=== PATIENT | female | born 1985 | race Caucasian/White ===

== ENCOUNTER 2016-11-08 00:03 | Emergency (ER) | payer BC, OTHER ==
[2016-11-08 00:21] VITALS: BP 119/77; PULSE 60; TEMP 98.4; BMI 27.1
[2016-11-08] MEDS ORDERED: KETOROLAC TROMETHAMINE 60 MG/2 ML VIAL IM ONE (01:03)
[2016-11-08] MEDS ORDERED: OXYCODONE/APAP 5/325MG COMBO TABLET PO ONE (01:03)
--- NOTE | 2016-11-08 01:03 | PDOC ---
History of Present Illness - General History Source: Patient, Old Records Exam Limitations: No Limitations - History of Present Illness Initial Comments: 11/08/16 01:08 The patient is a 31 year old female, with a significant past medical history of chronic back pain and anxiety, who presents to the emergency department with a panic attack that occurred today and back pain. She reports that she was on a plane today which caused her to have a panic attack. She notes that the panic attack caused her back pain to flare up. She describes her back pain as localized in the lower back, ranging from moderate to severe, without radiation or modifying factors. She states that she takes Valium 5 mg 3 times a day. The patient denies chest pain, shortness of breath, headache and dizziness. LMP: 10/19/2016 Allergies: None Past surgical history: Breast augmentation Social history: Alcohol and tobacco use. No drug use reported <Rodolfo Carmen - Last Filed: 11/08/16 01:11> <Isaura Payne - Last Filed: 11/08/16 01:51> - General Chief Complaint: Psychiatric Stated Complaint: ANXIETY/LOWER BACK PAIN Time Seen by Provider: 11/08/16 00:20 Past History <Rodolfo Carmen - Last Filed: 11/08/16 01:11> - Past Medical History Anemia: No Asthma: No Cancer: No Cardiac Disorders: No CVA: No COPD: No CHF: No DVT: No Dementia: No Diabetes: No Dialysis: No Psychiatric Problems: Yes (anxiety) - Psycho/Social/Smoking Cessation Hx Suicidal Ideation: No Smoking Status: No Smoking History: Never smoked Number of Cigarettes Smoked Daily: 0 <Isaura Payne - Last Filed: 11/08/16 01:51> - Past Medical History Allergies/Adverse Reactions: Allergies Allergy/AdvReac Type Severity Reaction Status Date / Time No Known Allergies Allergy Verified 11/08/16 00:19 Home Medications: Ambulatory Orders No Home Medications 0 dose .ROUTE UTDICT 11/24/13 Trauma Specific PMHX - Complaint Specific PMHX Arthritis: No <Isaura Payne - Last Filed: 11/08/16 01:51> Review of Systems - Review of Systems Able to Perform ROS?: Yes Comments:: 11/08/16 01:09 GENERAL/CONSTITUTIONAL: +Anxiety. No fever or chills. No weakness. HEAD, EYES, EARS, NOSE AND THROAT: No change in vision. No ear pain or discharge. No sore throat. CARDIOVASCULAR: No chest pain or shortness of breath RESPIRATORY: No cough, wheezing, or hemoptysis. GASTROINTESTINAL: No nausea, vomiting, diarrhea or constipation. GENITOURINARY: No dysuria, frequency, or change in urination. MUSCULOSKELETAL: +Back pain. No joint or muscle swelling or pain. No neck pain. SKIN: No rash NEUROLOGIC: No headache, vertigo, loss of consciousness, or change in strength/ sensation. ENDOCRINE: No increased thirst. No abnormal weight change HEMATOLOGIC/LYMPHATIC: No anemia, easy bleeding, or history of blood clots. ALLERGIC/IMMUNOLOGIC: No hives or skin allergy. <Rodolfo Carmen - Last Filed: 11/08/16 01:11> *Physical Exam - Vital Signs Last Vital Signs Temp Pulse Resp BP Pulse Ox 98.4 F 60 18 119/77 100 11/08/16 00:19 11/08/16 00:19 11/08/16 00:19 11/08/16 00:19 11/08/16 00:19 - Physical Exam Comments: 11/08/16 01:09 GENERAL: Awake, alert, and fully oriented, in no acute distress HEAD: No signs of trauma, normocephalic, atraumatic EYES: PERRLA, EOMI, sclera anicteric, conjunctiva clear ENT: Auricles normal inspection, hearing grossly normal, nares patent, oropharynx clear without exudates. Moist mucosa NECK: Normal ROM, supple, no lymphadenopathy, JVD, or masses LUNGS: No distress, speaks full sentences, clear to auscultation bilaterally HEART: Regular rate and rhythm, normal S1 and S2, no murmurs, rubs or gallops, peripheral pulses normal and equal bilaterally. ABDOMEN: Soft, nontender, normoactive bowel sounds. No guarding, no rebound. No masses EXTREMITIES: Normal inspection, Normal range of motion, no edema. No clubbing or cyanosis. NEUROLOGICAL: Cranial nerves II through XII grossly intact. Normal speech, normal gait, no focal sensorimotor deficits SKIN: Warm, Dry, normal turgor, no rashes or lesions noted. <Rodolfo Carmen - Last Filed: 11/08/16 01:11> - Vital Signs Last Vital Signs Temp Pulse Resp BP Pulse Ox 98.4 F 60 18 119/77 100 11/08/16 00:19 11/08/16 00:19 11/08/16 00:19 11/08/16 00:19 11/08/16 00:19 <Isaura Payne - Last Filed: 11/08/16 01:51> Medical Decision Making - Medical Decision Making 11/08/16 01:26 31 yo female with h/o chronic back pain and anxiety states her flight from [place] has exacerbated her low back pain and anxiety -she denies any recent trauma,fever,chills,hematuria,flank pain ,nausea or vomiting <Isaura Payne - Last Filed: 11/08/16 01:51> *DC/Admit/Observation/Transfer - Attestations Scribe Attestion: 11/08/16 01:09 Documentation prepared by Rodolfo Carmen, acting as medical management specialist for Isaura Payne MD <Rodolfo Carmen - Last Filed: 11/08/16 01:11> <Isaura Payne - Last Filed: 11/08/16 01:51> Diagnosis at time of Disposition: Anxiety Chronic low back pain Qualifiers: Back pain laterality: bilateral Sciatica presence: without sciatica Qualified Code(s): M54.5 - Low back pain - Discharge Dispostion Disposition: HOME Condition at time of disposition: Stable - Referrals Referrals: Yonatan Ashford [Primary Care Provider] - - Patient Instructions Printed Discharge Instructions: DI for Low Back Pain, DI for Anxiety -- Adult Additional Instructions: Please followup with your regular physician this week
[2016-11-08] MEDS ORDERED: OXYCODONE/APAP 5/325MG COMBO TABLET ONE (01:13)
[2016-11-08] MEDS ORDERED: KETOROLAC TROMETHAMINE 60 MG/2 ML VIAL ONE (01:13)
== END 2016-11-08 02:02 | disposition home or self-care (01) ==
LOC: JER 00:03
PROC: 3E0233Z Introduction of Anti-inflammatory into Muscle, Percutaneous Approach (ICD-10-PCS; principal; 2016-11-08)
DX: F41.9 Anxiety disorder, unspecified (principal)
CPT/HCPCS: 99281-25

== ENCOUNTER 2023-12-04 22:39 | Emergency (ER) | payer BC ==
[2023-12-04] MEDS ORDERED: KETOROLAC TROMETHAMINE 30 MG/1 ML VIAL IVPUSH ONE (22:53)
[2023-12-04] MEDS ORDERED: ONDANSETRON 4 MG/2 ML VIAL IVPUSH ONE (22:53)
[2023-12-04 23:15] LABS: HCG,QUALITATIVE URINE Negative
[2023-12-04 23:16] VITALS: BP 116/76; PULSE 60; RESP 18; TEMP 97.3; BMI 31.0
[2023-12-04 23:18] LABS: HEMATOCRIT 42.7 % (32.4-45.2); MCH 28.2 pg (25.7-33.7); MCHC 32.8 g/dl (32.0-36.0); MEAN PLT VOLUME 8.5 fl (7.5-11.1); PLATELET COUNT 257.6 10^3/uL (134-434); RBC 4.96 10^6/uL (3.60-5.2); RDW 14.4 % (11.6-15.6); WHITE BLOOD COUNT 8.9 10^3/uL (4.0-10.8)
[2023-12-04] MEDS: SODIUM CHLORIDE 1,000 ML IV ONE (23:22)
[2023-12-04 23:30] LABS: EPITHELIAL CELLS 0-5 /hpf
[2023-12-04 23:42] LABS: ALBUMIN 4.7 g/dl (3.4-5.0); BILIRUBIN,TOTAL 0.3 mg/dl (0.2-1); CALCIUM 9.4 mg/dl (8.5-10.1); CREATININE 0.9 mg/dl (0.6-1.3); TOT PROT 7.1 g/dl (6.4-8.2)
== END 2023-12-05 01:02 | disposition home or self-care (01) ==
LOC: FER 22:39
PROC: 3E0337Z Introduction of Electrolytic and Water Balance Substance into Peripheral Vein, Percutaneous Approach (ICD-10-PCS; principal; 2023-12-04)
DX: R10.31 Right lower quadrant pain (principal); R11.0 Nausea
CPT/HCPCS: 36415; 74176-TC; 80053; 81003; 81015; 81025; 84703; 85027; 87086; 99284-25